=== PATIENT | female | born 1965 | race Asian ===

== ENCOUNTER 2016-07-11 03:39 | Outpatient (CLI) | payer OTHER ==
[2016-07-11 06:48] LABS: Glucose 87 mg/dL (70-105)
[2016-07-11 07:29] LABS: Free T4 (Free Thyroxine) 0.97 ng/dL (0.70-1.48); Vitamin D, 25 Hydroxy 40.1 ng/mL (> 30.0)
[2016-07-11 18:26] LABS: Creatinine, Urine 74.22 mg/dL (47-110); Microalbumin Urine Less than 1.0 mg/dL (0.5-50.0); Microalbumin/Creat Ratio 13.5 mg/g (Less than 30)
[2016-07-11 19:07] LABS: Insulin 5.3 uU/mL (3.0-25.0); Luteinizing Hormone 46.03 mIU/mL (See Ranges)
== END 2016-07-11 03:40 | disposition home or self-care (01) ==
LOC: MADLAB 03:39
DX: E04.2 Nontoxic multinodular goiter (principal)
CPT/HCPCS: 36415; 82043; 82306; 82947; 83001; 83002; 83525; 84439; 84481

== ENCOUNTER 2016-12-20 01:50 | Outpatient (CLI) | payer OTHER ==
[2016-12-20 03:17] LABS: Anion Gap 13 mmol/L (10-20); BUN (Urea Nitrogen) 11 mg/dL (7.0-18.7); Calc. Creatinine Clearance 0 mL/min (70-130); Calcium 9.6 mg/dL (7.8-10.44); Carbon Dioxide 27 mmol/L (22-29); Cardiac Risk 3.6 (Less than 4.5); Chloride 102 mmol/L (98-107); Cholesterol 254 mg/dl (< 200 Desired); Estimated GFR-MDRD 75; Glucose 90 mg/dL (70-105); HDL Cholesterol 71 mg/dL (>60 Neg Risk); LDL Cholesterol, Calculated 164 mg/dL; Potassium 4.1 mmol/L (3.5-5.1); Sodium 138 mmol/L (136-145); Triglycerides 95 mg/dL (Less than 150)
[2016-12-20 03:26] LABS: Vitamin D, 25 Hydroxy 48.3 ng/ml (> 30.0)
== END 2016-12-20 01:51 | disposition home or self-care (01) ==
LOC: MADLAB 01:50
DX: E55.9 Vitamin D deficiency, unspecified (principal); E89.0 Postprocedural hypothyroidism; I10 Essential (primary) hypertension; R74.9 Abnormal serum enzyme level, unspecified; E78.00 Pure hypercholesterolemia, unspecified
CPT/HCPCS: 36415; 80048; 80061; 82150; 82306; 82570; 84439; 84481

== ENCOUNTER 2017-08-24 12:33 | Outpatient (CLI) | payer OTHER ==
[2017-08-24 13:40] LABS: Anion Gap 16 mmol/L (10-20); BUN (Urea Nitrogen) 18 mg/dL (7.0-18.7); Calc. Creatinine Clearance 0 mL/min (70-130); Calcium 9.7 mg/dL (7.8-10.44); Carbon Dioxide 26 mmol/L (22-29); Cardiac Risk 2.7 (Less than 4.5); Chloride 103 mmol/L (98-107); Cholesterol 168 mg/dl (< 200 Desired); Estimated GFR-MDRD 50; Glucose 96 mg/dL (70-105); HDL Cholesterol 62 mg/dL (>60 Neg Risk); LDL Cholesterol, Calculated 85 mg/dL; Potassium 4.6 mmol/L (3.5-5.1); Sodium 140 mmol/L (136-145); Triglycerides 107 mg/dL (Less than 150)
[2017-08-24 16:56] LABS: Free T4 (Free Thyroxine) 0.92 ng/dL (0.70-1.48)
== END 2017-08-24 12:34 | disposition home or self-care (01) ==
LOC: MADLAB 12:33
PROVIDERS: ATTEND Internal Medicine Endocrinology, Diabetes & Metabolism
DX: E04.2 Nontoxic multinodular goiter (principal); E78.00 Pure hypercholesterolemia, unspecified; I10 Essential (primary) hypertension
CPT/HCPCS: 36415; 80048; 80061; 84439; 84443; 84481

== ENCOUNTER → 2018-03-05 | Emergency (ER) | payer OTHER ==
[2018-03-05 23:40] LABS: HIV (1/2) Antibody/Antigen Non-Reactive (NonReactive); Hep C IgG Ab Non-Reactive (NonReactive); Hep C Index 0.09 S/CO (0-0.79)
[2018-03-06 01:32] LABS: Hep B Surf AB Reactive (NonReactive)
[2018-03-06 01:33] LABS: HBSAB Concentration 4665.78 mIU/mL
== END ==
LOC: EDSTATUS 09:02 → MADERS 15:33
DX: Z77.21 Contact with and (suspected) exposure to potentially hazardous body fluids (principal); I10 Essential (primary) hypertension; K58.9 Irritable bowel syndrome, unspecified
CPT/HCPCS: 36415; 86706; 86803; 87389; 99283

== ENCOUNTER 2020-03-23 20:58 | Emergency (ER) | payer OTHER ==
[2020-03-23] MEDS ORDERED: Boostrix 0.5 ML VIAL ONE (22:01)
[2020-03-24 00:53] LABS: HIV (1/2) Antibody/Antigen Non-Reactive (NonReactive); HIV 1/2 INDEX 0.18 S/CO (<1.00); Hep C IgG Ab Non-Reactive (NonReactive); Hep C Index 0.12 S/CO (0-0.79)
[2020-03-24 01:36] LABS: HBSAB Concentration 4346.49 mIU/mL
[2020-03-24 01:37] LABS: Hep B Surf AB Reactive (NonReactive)
== END 2020-03-23 22:10 | disposition home or self-care (01) ==
LOC: MADERS 20:58
DX: S61.032A Puncture wound without foreign body of left thumb without damage to nail, initial encounter (principal); I10 Essential (primary) hypertension; K58.9 Irritable bowel syndrome, unspecified; W26.8XXA Contact with other sharp object(s), not elsewhere classified, initial encounter
CPT/HCPCS: 36415; 86706; 86803; 87389; 90471; 90715

== ENCOUNTER 2020-09-19 14:25 | Outpatient (CLI) | payer OTHER | END 2020-09-19 14:26 | disposition home or self-care (01) | LOC: MADRAD 14:25 | PROVIDERS: ATTEND Family Medicine | DX: S09.93XA Unspecified injury of face, initial encounter (principal); J02.9 Acute pharyngitis, unspecified | CPT/HCPCS: 71046; 72040 ==

== ENCOUNTER 2021-06-12 19:16 | Outpatient (CLI) | payer OTHER ==
[2021-06-12 20:12] LABS: SARS-CoV-2 NAA Rapid Test Not Detected (NotDetected)
== END 2021-06-12 19:17 | disposition home or self-care (01) ==
LOC: MADLAB 19:16
PROVIDERS: ATTEND Family Medicine
DX: Z20.822 Contact with and (suspected) exposure to COVID-19 (principal)
CPT/HCPCS: U0002

== ENCOUNTER 2023-01-31 12:51 | Outpatient (CLI) | payer OTHER ==
[2023-01-31 14:36] LABS: AST (SGOT) 24 U/L (5-34); Albumin 4.3 g/dL (3.5-5.0); BUN (Urea Nitrogen) 14 mg/dL (9.8-20.1); Bilirubin, Total 0.5 mg/dL (0.2-1.2); Calc. Creatinine Clearance 0 mL/min (70-130); Globulin 3.6 g/dL (2.4-3.5); Glucose 146 mg/dL (70-105); Potassium 3.9 mmol/L (3.5-5.1); Protein, Total 7.9 g/dL (6.0-8.3)
[2023-01-31 14:50] LABS: ALT (SGPT) 16 U/L (8-55); Alkaline Phosphatase 47 U/L (40-110); Anion Gap 14 mmol/L (10-20); Calcium 9.7 mg/dL (7.8-10.44); Carbon Dioxide 28 mmol/L (22-29); Chloride 103 mmol/L (98-107); Estimated GFR 70; Lipase 26 U/L (8-78); Sodium 141 mmol/L (136-145)
== END 2023-01-31 12:52 | disposition home or self-care (01) ==
LOC: MADLAB 12:51
PROVIDERS: ATTEND Emergency Medicine
DX: Z00.00 Encounter for general adult medical examination without abnormal findings (principal)
CPT/HCPCS: 36415; 80053; 82150; 83690; 84443

== ENCOUNTER 2023-06-12 15:11 | Outpatient (CLI) | payer BC | END 2023-06-12 15:12 | disposition home or self-care (01) | LOC: MADLAB 15:11 → MADRAD 15:12 | PROVIDERS: ATTEND Family Medicine | DX: R05.3 Chronic cough (principal); Z86.16 Personal history of COVID-19 | CPT/HCPCS: 71045 ==